=== PATIENT | female | born 1940 | race Hispanic/Latino ===

== ENCOUNTER → 2023-04-12 | Outpatient (CLI) | payer OTHER | END | disposition home or self-care (01) | LOC: SHCH 14:10 | PROVIDERS: ATTEND Student in an Organized Health Care Education/Training Program | DX: I11.9 Hypertensive heart disease without heart failure (principal); R07.89 Other chest pain; E78.5 Hyperlipidemia, unspecified | CPT/HCPCS: 93308 ==

== ENCOUNTER → 2024-12-14 | Outpatient (CLI) | payer OTHER ==
--- NOTE | 2024-12-14 20:58 | HMCIMG ---
LEFT HUMERUS RADIOGRAPHS - 2 VIEWS INDICATION: Pain COMPARISON: None FINDINGS: AP and lateral views. No fracture or dislocation identified. No radiopaque foreign body noted. IMPRESSION: No evidence for fracture or dislocation.
--- NOTE | 2024-12-14 20:58 | HMCIMG ---
LEFT ELBOW RADIOGRAPHS - 2 VIEWS INDICATION: Pain COMPARISON: None FINDINGS: AP, lateral views. No fracture or dislocation identified. No significant joint effusion is present. No radiopaque foreign body noted. IMPRESSION: No evidence for fracture or dislocation.
== END | disposition home or self-care (01) ==
LOC: RAH 16:50
PROVIDERS: ATTEND Internal Medicine
DX: M25.522 Pain in left elbow (principal); M79.602 Pain in left arm
CPT/HCPCS: 73060; 73070